=== PATIENT | male | born 1990 | race Two or more races ===

== ENCOUNTER 2023-09-12 11:05 | Emergency (ER) | payer OTHER, SELFPAY ==
[2023-09-12 11:08] VITALS: BP 129/86; PULSE 82; RESP 16; TEMP 36.4; O2SAT 98; BMI 33.2
--- NOTE | 2023-09-12 11:31 | ED.EYEPROB1 ---
HPI - Eye Problem General Chief complaint: Eye Problems Stated complaint: VISION TROUBLES Time Seen by Provider: 09/12/23 11:31 Source: patient Mode of arrival: walk-in History of Present Illness HPI Narrative: this patient's here complaining of drainage and discharge from both his eyes. He had a sore throat last week. Did not take any antibiotics. He has several children at home but they've not had any conjunctivitis. He does not wear contact lenses. He does not have any severe pain he says it just feels like a gritty sensation. Does not have any light sensitivity or headache. Just when he wakes up there is a large amount of debris in both his eyes. He's not had a runny nose Related Data Allergies Allergy/AdvReac Type Severity Reaction Status Date / Time No Known Drug Allergies Allergy Verified 09/12/23 11:10 Exam Narrative Exam Narrative: awake alert appears in no distress. Vital signs are stable. On eye examination there is very very mild injection of both conjunctival sacs. He can see the debris of purulent drainage. Extraocular muscles normal pupillary light response is normal. He has no pain or proptosis in the eye. Lids and lashes are completely normal. There is no facial swelling or erythema. Neck shocker muscles are normal. Anterior chamber is clear. Constitutional Vital Signs, click to edit/add: Last Vital Signs Temp 97.6 F 09/12/23 11:08 Pulse 82 09/12/23 11:08 Resp 16 09/12/23 11:08 BP 129/86 09/12/23 11:08 Pulse Ox 98 09/12/23 11:08 O2 Del Method Room Air 09/12/23 11:08 Course Vital Signs Vital signs: Vital Signs Temperature 97.6 F 09/12/23 11:08 Pulse Rate 82 09/12/23 11:08 Respiratory Rate 16 09/12/23 11:08 Blood Pressure 129/86 09/12/23 11:08 Pulse Oximetry 98 09/12/23 11:08 Oxygen Delivery Method Room Air 09/12/23 11:08 Temperature 97.6 F 09/12/23 11:08 Pulse Rate 82 09/12/23 11:08 Respiratory Rate 16 09/12/23 11:08 Blood Pressure 129/86 09/12/23 11:08 Pulse Oximetry 98 09/12/23 11:08 Oxygen Delivery Method Room Air 09/12/23 11:08 Discharge Plan Discharge Chief Complaint: Eye Problems Clinical Impression: Conjunctivitis Patient Disposition: Home, Self-Care Time of Disposition Decision: 11:33 Stand Alone Forms: Portal Instructions Referrals: Physician,Non-Staff, MD [Primary Care Provider] - 1 week
== END 2023-09-12 11:44 | disposition home or self-care (01) ==
PROVIDERS: Emergency Provider Emergency Medicine Emergency Medical Services
DX: H10.9 Unspecified conjunctivitis (principal)
CPT/HCPCS: 99283

== ENCOUNTER 2025-03-18 15:54 | Emergency (ER) | payer OTHER, SELFPAY ==
[2025-03-18 16:03] VITALS: BP 145/76; PULSE 87; TEMP 37.1; O2SAT 97; BMI 34.9
[2025-03-18] MEDS: KETOROLAC TROMETHAMINE 30 MG/ML VIAL 15 MG IVP ×2 (16:48→21:32)
[2025-03-18 16:54] LABS: Hematocrit 43.1 % (42.0-54.0); Hemoglobin 14.8 g/dL (14.0-18.0); Immature Granulocytes Abs Auto 0.02 10^3/uL (0.00-0.03); Immature Granulocytes Pct Auto 0.3 % (0.0-0.5); Lymphocytes Absolute Auto 1.1 10^3/uL (1.2-3.8); Mean Corpuscular HGB Conc 34.3 g/dL (29.9-35.2); Mean Corpuscular Hemoglobin 29.4 pg (25.9-34.0); Mean Corpuscular Volume 85.5 fL (80.0-94.0); Platelet Count 278 10^3/uL (150-450); Red Blood Count 5.04 10^6/uL (4.70-6.10); White Blood Count 6.4 10^3/uL (4.0-11.0)
[2025-03-18 17:12] LABS: Alanine Aminotransferase 29 U/L (16-63); Albumin Globulin Ratio 1.1; Albumin Level 3.8 g/dL (3.4-5.0); Alkaline Phosphatase 65 U/L (46-116); Anion Gap 13.3; Aspartate Amino Transferase 18 U/L (15-37); Blood Urea Nitrogen 17.0 mg/dL (7.0-18.0); Calcium 9.0 mg/dL (8.5-10.1); Carbon Dioxide 28.8 mmol/L (21.0-32.0); Chloride 104 mmol/L (98-107); Estimated GFR (African America >60 (>=60 mL/min/1.73m^2); Estimated GFR (Non-African Ame >60 (>=60 mL/min/1.73m^2); Globulin 3.5 g/dL; Glucose 118 mg/dL (74-106); Potassium 4.1 mmol/L (3.5-5.1); Sodium 142 mmol/L (136-145); Total Protein 7.3 g/dL (6.4-8.2)
[2025-03-18 17:17] LABS: Lactate/Lactic Acid 2.0 mmol/L (0.4-2.0)
--- NOTE | 2025-03-18 18:02 | CT_ITS ---
[address] [address] Patient Name: MIKE SWEENEY MRN: [id number] date: 1990 Sex: M Assigned Patient Location: ER Current Patient Location: [facility] Accession/Order Number: [id number] Exam Date: 03/18/2025 19:13 Report Date: 03/18/2025 19:18 At the request of: CIARA CONTRERAS MD Procedure: CT abdomen pelvis w con CT abdomen pelvis w con 03/18/2025 6:34 PM SIGNS AND SYMPTOMS: ^swelling and bleeding spot behind the scrotum \S.br\ TECHNIQUE: Multidetector ct axial images of the abdomen and pelvis were obtained with IV contrast. Multiplanar reformats were performed and reviewed to further define anatomy and possible pathology. CT was performed with one or more of the following dose reduction techniques: Automated exposure control, adjustment of the mA and/or kV according to patient size, or use of iterative reconstruction technique. COMPARISON: None. FINDINGS: Lower Chest: Within normal limits. ABDOMEN: Liver: The liver is diffusely hypoattenuating suggesting hepatic steatosis. Bile Ducts: Normal caliber. Gallbladder: No calcified gallstones. Normal caliber wall. Pancreas: Within normal limits. Spleen: Within normal limits. Adrenals: Within normal limits. Kidneys: There is a 7 mm nonobstructing stone in the right renal collecting system. There is a 3 mm nonobstructing stone in the left renal collecting system. Pelvis: Reproductive Organs: No pelvic masses. Ureters: Within normal limits. Bladder: Within normal limits. Bowel: Normal caliber. Mesenteric Lymph Nodes: No enlarged mesenteric lymph nodes. Peritoneum: No ascites or free air, no fluid collection. Vessels: within normal limits Retroperitoneum: Within normal limits. Abdominal Wall: In the left perirectal and perianal region there is a fluid collection measuring 10.2 x 3.3 x 11.5 cm in greatest dimension suspicious for abscess. This extends into the left intergluteal fold and extends anteriorly to the base of the scrotum. Bones: Within normal limits. CT/CT abdomen pelvis w con IMPRESSION: In the left perirectal and perianal region there is a fluid collection measuring 10.2 x 3.3 x 11.5 cm in greatest dimension suspicious for abscess. This extends into the left intergluteal fold and extends anteriorly to the base of the scrotum. Impression dictated by: Noé Espana M.D. 03/18/2025 7:18 PM Dictation Location: [place] [address] Electronically authenticated by: [id number] Y Date: 03/18/2025 19:18
--- NOTE | 2025-03-18 18:36 | ED.SKABFB1 ---
HPI - Skin/Abscess/Foreign Bdy General Chief complaint: Skin/Abscess/Foreign Body Stated complaint: PAIN AND BLEEDING FROM SCROTUM Time Seen by Provider: 03/18/25 16:08 Source: patient Mode of arrival: walk-in History of Present Illness HPI narrative: The patient presented to us with a what he called an area of thick skin at that time was hard that he noticed almost 3 days ago it was in the posterior aspect of the scrotum, today he started noticing that this area is bleeding without any history of trauma He did had some chills at home and some tenderness in the area Related Data Home Medications ?Medication ?Instructions ?Recorded ?Confirmed No Known Home Medications 03/18/25 03/18/25 Allergies Allergy/AdvReac Type Severity Reaction Status Date / Time No Known Drug Allergies Allergy Verified 09/12/23 11:10 Review of Systems ROS Status of ROS 10 or more systems reviewed and unremarkable except as noted in history and below PFSH PFSH Social History Little interest or pleasure in doing things: not at all Feeling down, depressed, or hopeless: not at all Exam Narrative Exam Narrative: Nurses notes and vital signs reviewed and patient is not hypoxic. Perineal exam: Patient have a an area of hardened thick skin in the posterior aspect of the scrotum with a 1 spot of 1 mm opening that is bleeding, this area is surrounded by hardened skin and there is a concern that this was previously an abscess that is draining General: Well-appearing and in no apparent distress. Skin: Warm, dry, no pallor noted. No rash. Head: Normocephalic, atraumatic. Neck: Supple, non-tender. Eye: Pupils are equal, round and EOMI. No scleral icterus. Ears, Nose, Mouth, and Throat: TM are clear, no nasal mucosal hypertrophy. Oral mucosa is moist, no posterior oropharynx erythema, uvula is mid-line Cardiovascular: Regular Rate and Rhythm without murmur, gallop or rub. Respiratory: No accessory muscle use or respiratory distress. Lungs are clear to auscultation, no wheezing, rales or rhonchi Chest Wall: no tenderness Back: No midline thoracic or lumbar vertebral tenderness. No CVA tenderness Musculoskeletal: normal ROM, no calf or popliteal tenderness, no lower extremity edema/swelling GI: Abdomen is soft, non-distended. Normal bowel sounds. No masses appreciated. No tenderness to palpation. No rebound, guarding, or rigidity noted. Neurological: A&O x4. No cranial nerve dysfunction observed. No truncal ataxia. Moves all extremities. Sensation intact. Psychiatric: Cooperative and interactive. Normal mood and affect. Constitutional Vital Signs, click to edit/add: Last Vital Signs Temp 98.7 F 03/18/25 16:03 Pulse 87 03/18/25 16:03 Resp 18 03/18/25 16:03 BP 145/76 H 03/18/25 16:03 Pulse Ox 97 03/18/25 16:03 O2 Del Method Room Air 03/18/25 16:03 Course Vital Signs Vital signs: Vital Signs Temperature 98.7 F 03/18/25 16:03 Pulse Rate 87 03/18/25 16:03 Respiratory Rate 18 03/18/25 16:03 Blood Pressure 145/76 H 03/18/25 16:03 Pulse Oximetry 97 03/18/25 16:03 Oxygen Delivery Method Room Air 03/18/25 16:03 Temperature 98.7 F 03/18/25 16:03 Pulse Rate 87 03/18/25 16:03 Respiratory Rate 18 03/18/25 16:03 Blood Pressure 145/76 H 03/18/25 16:03 Pulse Oximetry 97 03/18/25 16:03 Oxygen Delivery Method Room Air 03/18/25 16:03 MDM - Skin/Abscess/Foreign Bdy MDM Narrative Medical decision making narrative: The patient CBC and chemistry showed no acute significant pathology with no elevated lactic acid The patient was started initially with Toradol and ceftriaxone CAT scan of the abdomen pelvis ordered and pending Lab Data Labs: Lab Results 03/18/25 Range/Units 16:34 WBC 6.4 (4.0-11.0) 10^3/uL RBC 5.04 (4.70-6.10) 10^6/uL Hgb 14.8 (14.0-18.0) g/dL Hct 43.1 (42.0-54.0) % MCV 85.5 (80.0-94.0) fL MCH 29.4 (25.9-34.0) pg MCHC 34.3 (29.9-35.2) g/dL RDW 11.5 (11.0-15.0) % Plt Count 278 (150-450) 10^3/uL MPV 9.3 L (9.5-13.5) fL Neut % (Auto) 68.7 (43.0-75.0) % Lymph % (Auto) 17.3 L (20.5-60.0) % [place] % (Auto) 10.0 (1.7-12.0) % Eos % (Auto) 3.1 (0.9-7.0) % Baso % (Auto) 0.6 (0.2-2.0) % Neut # (Auto) 4.4 (1.4-6.5) 10^3/uL Lymph # (Auto) 1.1 L (1.2-3.8) 10^3/uL [place] # (Auto) 0.6 (0.3-0.8) 10^3/uL Eos # (Auto) 0.2 (0.0-0.7) 10^3/uL Baso # (Auto) 0.0 (0.0-0.1) 10^3/uL Abs Immat Gran (auto) 0.02 (0.00-0.03) 10^3/uL Imm/Tot Granulo (auto) 0.3 (0.0-0.5) % Sodium 142 (136-145) mmol/L Potassium 4.1 (3.5-5.1) mmol/L Chloride 104 (98-107) mmol/L Carbon Dioxide 28.8 (21.0-32.0) mmol/L Anion Gap 13.3 BUN 17.0 (7.0-18.0) mg/dL Creatinine 1.21 (0.70-1.30) mg/dL Est GFR ( Amer) >60 (>=60 mL/min/1.73m^2) Est GFR (Non-Af Amer) >60 (>=60 mL/min/1.73m^2) BUN/Creatinine Ratio 14.0 Glucose 118 H (74-106) mg/dL Lactate 2.0 (0.4-2.0) mmol/L Calcium 9.0 (8.5-10.1) mg/dL Total Bilirubin 0.6 (0.2-1.0) mg/dL AST 18 (15-37) U/L ALT 29 (16-63) U/L Alkaline Phosphatase 65 (46-116) U/L Total Protein 7.3 (6.4-8.2) g/dL Albumin 3.8 (3.4-5.0) g/dL Globulin 3.5 g/dL Albumin/Globulin Ratio 1.1 Discharge Plan Discharge Patient Disposition: Still a Patient
[2025-03-18] MEDS: PIPERACILLIN SODIUM/TAZOBACTAM 4.5 GM in 0.9 % SODIUM CHLORIDE 50 ML IV (20:21)
--- NOTE | 2025-03-18 22:35 | PC.NURSE ---
[facility] arrives at this time for transport.
== END 2025-03-18 22:45 | disposition short-term general hospital (02) ==
PROVIDERS: Emergency Medicine; Emergency Provider Emergency Medicine
DX: K61.1 Rectal abscess (principal); K61.0 Anal abscess; N50.82 Scrotal pain; R58 Hemorrhage, not elsewhere classified
CPT/HCPCS: 36415; 74177; 80053; 83605; 85025; 96365; 96367; 96375; 96376; 99285; J0696; J1885; J2543; Q9967